=== PATIENT | male | born 1945 | race Caucasian/White ===

== ENCOUNTER → 2019-12-27 | Outpatient (CLI) | payer MEDICARE, OTHER ==
[~2019-12-27] MED LIST: ALEVE 220MG220 MG PO; ALTACE 10MG TAB10 MG PO; ASPIRIN 32325 MG/TAB PO; ASPIRIN E.C. 8181 MG PO; BYSTOLIC10 MG PO; CATAPRES 0.1MG0.1 MG PO; CEPHALEXIN500 M1 PO; ELIQUIS 5MG PO; PLAVIX 75MG TAB75 MG PO; PRADAXA 150MG150 MG PO; TIKOSYN0.5 MG PO; TOPROL XL 25MG25 MG PO; VYTORIN 10 MG-21 TAB PO; XARELTO10 MG PO; ZETIA 10MG TAB10 MG PO; ZOCOR 20MG20 MG PO
== END ==
LOC: COL.VAS 13:30
DX: G47.33 Obstructive sleep apnea (adult) (pediatric) (principal); I48.91 Unspecified atrial fibrillation; Z95.9 Presence of cardiac and vascular implant and graft, unspecified; I08.0 Rheumatic disorders of both mitral and aortic valves

== ENCOUNTER → 2020-01-21 | Outpatient (CLI) | payer MEDICARE, OTHER | LOC: ZCOL.LAB 17:12 | DX: R53.83 Other fatigue (principal); R05 Cough; R50.9 Fever, unspecified; Z20.828 Contact with and (suspected) exposure to other viral communicable diseases ==

== ENCOUNTER → 2021-02-15 | Outpatient (CLI) | payer MEDICARE, OTHER | LOC: COL.RAD 12:50 | DX: M25.551 Pain in right hip (principal) | CPT/HCPCS: J3301; Q9967 ==

== ENCOUNTER → 2022-03-17 | Outpatient (CLI) | payer MEDICARE, OTHER | LOC: COL.VAS 12:52 | DX: I08.0 Rheumatic disorders of both mitral and aortic valves (principal); I65.23 Occlusion and stenosis of bilateral carotid arteries ==

== ENCOUNTER 2023-10-12 10:00 | Inpatient (IN) | payer MEDICARE, OTHER ==
[~2023-10-12] VITALS: Ht 188 cm; Wt 97.2 kg
[~2023-10-12 10:00] MED LIST changes: +CVS SPECTRAVIT1 EA15 PO; +HCTZ 25MG TAB25 MG PO; +PAPAYA ENZYME1 TA1 PO; +PROTONIX 40MG T40 MG PO; +PROZAC 20MG20 MG PO; +THIAMINE 1100 MG/TAB PO; +TOPROL XL 50MG50 MG PO; +TYLENOL 325MG325 MG PO; +ZYRTEC 10MG10 MG PO
[2023-10-12] MEDS ORDERED: TYLENOL 500MG500 MG PO (13:54)
[2023-10-12] MEDS ORDERED: DULCOLAX S10 MG/SUPP RC (13:55)
[2023-10-12] MEDS ORDERED: LOVENOX 3030 MG/0.3 SQ (13:55)
[2023-10-12] MEDS ORDERED: CORDARONE200 MG/TAB PO (13:55)
[2023-10-12] MEDS ORDERED: FOLIC ACID 11 MG/TA1 PO (13:56)
[2023-10-12] MEDS ORDERED: PROZAC 20MG20 MG PO (13:56)
[2023-10-12] MEDS ORDERED: ZETIA 10MG TAB10 MG PO (13:56)
[2023-10-12] MEDS ORDERED: ATARAX 25MG25 MG/TAB PO (13:57)
[2023-10-12] MEDS ORDERED: TOPROL XL 50MG50 MG PO (13:57)
[2023-10-12] MEDS ORDERED: PROTONIX 40MG T40 MG PO (13:58)
[2023-10-12] MEDS ORDERED: ALTACE 5MG5 MG PO (13:59)
[2023-10-12] MEDS ORDERED: MIRALAX PA17 GM/Dose PO (13:59)
[2023-10-12] MEDS ORDERED: SENNA-LAX8.6 MG PO (14:00)
[2023-10-12 16:28] VITALS: BP 126/74; PULSE 59; TEMP 97.7
[2023-10-12] MEDS ORDERED: DULCOLAX TAB5 MG PO (16:34)
[2023-10-12] MEDS ORDERED: MULTI-VITAMIN W1 TA1 PO (16:36)
[2023-10-12] MEDS ORDERED: ROXICODONE 55 MG/TAB PO (16:38)
[2023-10-12] MEDS ORDERED: SENNA-S 50 MG-81 TAB PO (16:39)
[2023-10-12] MEDS ORDERED: NATURE'S BLEND100 M2 PO (16:40)
[2023-10-12] MEDS ORDERED: MOBIC15 MG PO (16:43)
--- NOTE | 2023-10-12 16:45 | NUR ---
Pt recently admitted to room from [facility]. Pt is alert and oriented, pain complaints in his neck, states the brace also bothers him at times. PT is weak and does need assistance with standing. Pt requires a walker and one assist with ambulation. Pt reprots that it has been several days since he has had a bowel movement and does not have much of an appetite due to this. Stool softeners reported as given. Pts and son at bedside. Dr Evans in with pt at this time
[2023-10-12] MEDS ORDERED: Naloxone 0.4 MG/ML VIAL IV PRN (17:00)
[2023-10-12] MEDS ORDERED: Docusate Sodium 100 MG CAP PO PRN (17:00)
[2023-10-12] MEDS ORDERED: Cetirizine 10 MG TAB PO PRN (17:15)
[2023-10-12] MEDS ORDERED: Acetaminophen 500 MG TAB PO PRN (17:15)
[2023-10-12] MEDS ORDERED: Meloxicam 7.5 MG TAB PO PRN (17:15)
[2023-10-12] MEDS ORDERED: oxyCODONE 5 MG TAB PO PRN (17:15)
[2023-10-12] MEDS ORDERED: Bisacodyl 5 MG TAB PO PRN (17:15)
[2023-10-12 17:41] VITALS: BP 126/74; PULSE 59; TEMP 97.7
--- NOTE | 2023-10-12 18:04 | NUR ---
Pt seems to be a little short tempered off and on. Pt was needing to have bowel movement and was somewhat snappy with staff and family. Pt was successful and is now apologetic. Pts and son did leave for the evening. I did go over orienting him to his room again, how to call for staff and using the call light. Educated him again on how meals and therapy works. Pt does appear to be forgetful. Bed alarm on
[2023-10-12 19:00] VITALS: BP_SYST 126
--- NOTE | 2023-10-12 19:00 | NUR ---
RECEIVED CHANGE OF SHIFT REPORT FROM DAY SHIFT NURSE. PATIENT RESTING IN BED, EXIT ALARM ON, CALL LIGHT IN REACH. DENIES ANY NEEDS OR CONCERNS AT TIME OF REPORT.
[2023-10-12] MEDS ORDERED: Sennosides/Docusate 8.6-50 MG TAB PO SCH (21:00)
[2023-10-12] MEDS ORDERED: Polyethylene Glycol 3350 17 GM PDS PO SCH (21:00)
[2023-10-12] MEDS ORDERED: Ezetimibe 10 MG TAB PO SCH (21:00)
[2023-10-12] MEDS ORDERED: hydrOXYzine HCl 25 MG TAB PO SCH (21:00)
--- NOTE | 2023-10-13 00:01 | NUR ---
PATIENT COMPLAINING OF NECK PAIN, SEE MAR FOR PAIN MEDS GIVEN. NO OTHER NEEDS REPORTED AT THIS TIME.
--- NOTE | 2023-10-13 03:30 | NUR ---
PATIENT RESTING IN BED WITH EYES CLOSED AND BREATHING UNLABORED AND EVEN. EXIT ALARM ON, CALL LIGHT IN REACH. PATIENT DID NOT WAKE DURING NURSE ROUNDING.
[2023-10-13 04:25] VITALS: BP 114/67; PULSE 60; TEMP 97.8
[2023-10-13 07:04] VITALS: BP_SYST 114
--- NOTE | 2023-10-13 07:06 | NUR ---
Change of shift report given to day shift nurseNila. Patient resting in bed with exit alarm on and call light in reach. No needs voiced at time of report.
[2023-10-13] MEDS ORDERED: Amiodarone 200 MG TAB PO SCH (09:00)
[2023-10-13] MEDS ORDERED: Folic Acid 1 MG TAB PO SCH (09:00)
[2023-10-13] MEDS ORDERED: FLUoxetine 20 MG CAP PO SCH (09:00)
[2023-10-13] MEDS ORDERED: Thiamine 100 MG TAB PO SCH (09:00)
--- NOTE | 2023-10-13 09:18 | NUR ---
PT LAYING IN BED, ALERT AND ORIENTEDX4. RATES PAIN 6/10 IN THE KNECK. GAVE PT PAIN PILL. PT WEARING ASPEN COLAR AND SAYS HE FEELS LIKE IT IS RUBBING ON HIS KNECK TOO MUCH. ASSESSED GAVE MORNING MEDS. CALL LIGHT WITHIN REACH.
--- NOTE | 2023-10-13 11:41 | NUR ---
wool batting worker met with pt and , Danica [phone] to complete intake. Pt reports he lives with his in [place]. He sees Dr. Salcedo for PCP needs and obtains medications from [facility] with no difficulties. Pt reports he is independent with ADLS, but needs some assistance with getting a sweater on. He reports to have a CPAP, FWW, and cane for DME. Pt states he drives himself to and from appointments. He states there are 3 stairs to enter the home and he has rails to assist. SW and pt both confirmed DPOA-HC as Danica with copy on file. Pt has no questions or needs at this time. SW stated she will follow along for needs, family meeting schedule, and updates from team conference on . Discharge Plan: re-eval
[2023-10-13 16:05] VITALS: BP 149/73; PULSE 59; TEMP 97.7
--- NOTE | 2023-10-13 17:44 | NUR ---
Incentive spirometer already in pt room. completing intervention.
[2023-10-13 19:01] VITALS: BP_SYST 149
--- NOTE | 2023-10-13 19:02 | NUR ---
Bedside report received from BRAYAN Dotson. Pt is currently resting in bed with no complaints. Call light within reach.
--- NOTE | 2023-10-14 05:31 | NUR ---
Shift assessment completed. VSS. Coy collar in place. Pt has no complaints of pain at this time. Pt urinated throughout the night in urinal with no complications. Pt has no request at this time. Call light within reach and fall precautions in place.
[2023-10-14 05:33] VITALS: BP 145/70; PULSE 64; TEMP 98.4
[2023-10-14 06:39] LABS: CALCIUM 8.7 mg/dL (8.4-10.2); CREATININE, serum 0.82 mg/dL (0.72-1.25); POTASSIUM 4.1 mEq/L (3.5-4.5)
[2023-10-14 07:13] VITALS: BP_SYST 145
--- NOTE | 2023-10-14 07:13 | NUR ---
Shift report received from night RN. No events reported overnight. Pt awake & lying supine in bed. Pt reporting neck discomfort. [place] collar is on. Pt repositioned in bed & reports feeling more comfortable. Other needs denied. Call light in reach. Bed alarm on.
--- NOTE | 2023-10-14 08:30 | NUR ---
Pt supervised as he stood from toilet to FWW to ambulate back to bed for breakfast. [place] collar on but removed for pos. neck incision check & then replaced. Optifoam dressing intact w/ shadowing noted. Bruising noted to pos. neck. Pt reporting neck & bilateral shoulder pain at 6/10. Oxycodone given per PRN order. Other needs denied. Call light in reach. Bed alarm on.
--- NOTE | 2023-10-14 09:47 | NUR ---
Pt off unit w/ PT.
--- NOTE | 2023-10-14 10:58 | NUR ---
Pt remains off unit for Group Therapy.
--- NOTE | 2023-10-14 12:06 | NUR ---
Pt back in room after Group Therapy. OT at the bedside for therapy in room.
--- NOTE | 2023-10-14 12:20 | NUR ---
Pt sitting up in recliner eating lunch independently. Son & grandson at the bedside. Pt reporting "pain is up there" but declines pain medication at this time. Other needs denied. Call light in reach. Chair alarm in place.
--- NOTE | 2023-10-14 14:01 | NUR ---
Pt supervised as he stood from recliner to transfer to bed. CGA provided during transfer. Pt assisted to supine position in bed w/ HOB slightly elevated. Pt requesting pain medication. Oxycodone given per PRN order. [place] collar on. at the bedside. Pt denies other needs. Call light in reach. Bed alarm on.
--- NOTE | 2023-10-14 15:36 | NUR ---
housekeeping worker met with pt to discuss need for family meeting on Monday at 10:15am or 10:30am. SW wrote this on the whiteboard as pt said he will discuss with his family. Discharge Plan: re-eval
--- NOTE | 2023-10-14 16:43 | NUR ---
Pt sleeping supine in bed w/ even & unlabored resps. Call light in reach. Bed alarm on.
[2023-10-14 17:27] VITALS: BP 145/76; PULSE 58; TEMP 97.6
[2023-10-14 18:56] VITALS: BP_SYST 145
--- NOTE | 2023-10-14 19:37 | NUR ---
Bedside report received from BRAYAN Blanc. Pt is currently resting with no complaints. Family at bedside. Call light within reach and fall precautions in place.
--- NOTE | 2023-10-15 01:48 | NUR ---
Pt pressed call light asking for this nurse to come into room due to pain in neck. This nurse went into pt room with KOKI Villagomez and assessed pain. Pt stated that PRN oxycodone did not help with the pain in his neck. This nurse offered PRN Tylenol and pt become upset. Pt stated that it was not his decision on whether to take the Tylenol. This nurse educated pt that the Tylenol order is a PRN medication and that it is his right on if he wants to take the medication. Pt stated that he did not want the medication at this time. This nurse repositioned pt with assistance of KOKI Villagomez. Pt has no other complaints at this time. Call light within reach and fall precautions in place.
[2023-10-15 05:50] VITALS: BP 164/66; PULSE 55; TEMP 97.4
--- NOTE | 2023-10-15 05:58 | NUR ---
This nurse heard groaning into pts room. This nurse
[2023-10-15 07:11] VITALS: BP_SYST 164
--- NOTE | 2023-10-15 07:12 | NUR ---
Shift report received from night PN. Pt awake & sitting up in bed. Pt reporting not sleeping well overnight d/t pain. Will discuss pain control w/ Hospitalist. Pt given oxycodone at 0534 by noc shift. Pt continues to report pain this morning.
--- NOTE | 2023-10-15 07:24 | NUR ---
ES Tylenol offered & refused.
--- NOTE | 2023-10-15 08:58 | NUR ---
Supervision provided as pt stood from bed to transfer to recliner. Oral hygiene completed by the pt independently after set up help provided. BLE elevated on footrest. Pt denies other needs at this time. Call light in reach. Chair alarm in place.
--- NOTE | 2023-10-15 10:01 | NUR ---
Pt sitting up in recliner watching [employer] service on his phone. [place] collar removed for incision check to pos neck. Optifoam dry & intact & shadowing. Bruising noted around neck incision. Oxycodone given at pt's request for neck pain. Other needs denied. Call light in reach. Chair alarm in place.
--- NOTE | 2023-10-15 10:59 | NUR ---
Chair alarm sounding. Pt transferred self from recliner to bed. Pt lying supine in bed upon room entry. HOB raised to approx 30 degrees at pt's request. Other needs denied. Call light in reach. Bed alarm on.
--- NOTE | 2023-10-15 11:34 | NUR ---
Pt assisted to sitting up on EOB & then supervised as he stood from bed to FWW to ambulate to the bathroom to attempt a BM. Pt reporting bilateral shoulder pain. Too soon for oxycodone. Pt agreeable to taking Tylenol. Tylenol given per PRN order. Other needs denied. Call light in reach.
--- NOTE | 2023-10-15 12:17 | NUR ---
Pt sitting up in recliner eating lunch indepenedently. [place] collar on. Pt denies any needs at this time. Call light in reach. Chair alarm in place.
--- NOTE | 2023-10-15 13:23 | NUR ---
Pt sitting up in recliner. Pt reporting skin irritation along jaw line. [place] collar removed, skin barrier applied, collar placed back on. Skin intact w/o redness or rash. Will continue to monitor.
--- NOTE | 2023-10-15 15:18 | NUR ---
Pt sleeping supine in bed w/ even & unlabored resps. Call light in reach. Bed alarm on.
[2023-10-15 17:00] VITALS: BP 131/67; PULSE 54; TEMP 97.5
--- NOTE | 2023-10-15 17:35 | NUR ---
Pt supervised as he stood from bed [facility]. Scheduled Tylenol given. Other needs denied. Call light in reach. Chair alarm in place. at the bedside.
[2023-10-15] MEDS ORDERED: Acetaminophen 500 MG TAB PO SCH (18:00)
--- NOTE | 2023-10-15 18:27 | NUR ---
Pt resting supine in bed after toileting. Pt had a medium, normal BM. Pt denies any needs at this time. Call light in reach. Bed alarm on. at the bedside.
--- NOTE | 2023-10-15 20:10 | NUR ---
Assessment complete. A&Ox3. Denies pain/nausea/shortness of breath. VS stable. Resting in bed watching tv with [place] Collar on. Instructed that patient is now on a scheduled tylenol. States if he is sleeping at 0000 he does not want to be woke up. Refusing mirilax and senocot stating he has had loose stools today. Plan of care discussed for this shift to include meds/pain control/calling for questions/concerns. Verbalizes understanding. Call light in reach. Will monitor.
[2023-10-15 20:40] VITALS: BP_SYST 131
--- NOTE | 2023-10-15 22:38 | NUR ---
Patient called with c/o pain to neck-rating pain 7/10 on pain scale. Oxycodone given per dr order. Patient has been incontinent of loose stool. Assisted with clean up and change. Denies any other needs. Call light in reach. Will monitor.
[2023-10-16 05:49] VITALS: BP 154/76; PULSE 51; TEMP 97.5
--- NOTE | 2023-10-16 05:53 | NUR ---
Patient had an uneventful night. Received oxycodone x1 and scheduled tylenol for pain. Has had several loose stools this shift. Did get slightly confused overnight not knowing where he was. Denies current needs. Call light in reach. Will monitor.
[2023-10-16 06:30] VITALS: BP_SYST 154
--- NOTE | 2023-10-16 08:53 | NUR ---
PT LAYING IN BED UPON ENTERING. ASSESSMENT DONE, MEDS GIVEN. MIRALAX AND SENOKOT HELD DUE TO DIARRHEA RPEORTED BY NIGHT RN, PT AGREES. PT DENIES PAIN AT THIS TIME. PT DRESSED AND AMBULATED WITH WALKER STANDBY TO CHAIR, PT TOLERATED WELL. ASPEN COLLAR IN PLACE. BREAKFAST SET UP AND PT DENIES NEEDS. CHAIR ALARM ON, CALL LIGHT IN REACH
--- NOTE | 2023-10-16 11:24 | NUR ---
RANDY, PHYSICAL THERAPY, CALLED THIS NURSE DUE TO PTS INCREASED PAIN DURING THERAPY. PRN 5MG OXYCODONE CLOSED UPON ARRIVAL AND GIVEN IN PHYSICAL THERPAY, RANDY WITNESSING ADMINISTRATION. PT DENIES FURTHER NEEDS.
--- NOTE | 2023-10-16 14:30 | NUR ---
Admission QIM scores were reviewed by the team. Code of 5 chosen for eating was determined by team discussion to be the most usual performance before interventions for this patient during the assessment period. Code of 4 chosen for sit to stand was determined by team discussion to be the most usual performance for this patient during the discharge assessment period. Code of 3 chosen for walking 10 feet was determined by team discussion to be the most usual performance for this patient during the discharge assessment period.--Marcelle Wyatt, PD
--- NOTE | 2023-10-16 15:31 | NUR ---
casino gaming worker met with pt to discuss any needs. Pt reports no concerns. SW verified the 10:30am Monday family meeting and pt was agreeable to this. Discharge Plan: re-eval
[2023-10-16 17:30] VITALS: BP 149/66; PULSE 54; TEMP 98
--- NOTE | 2023-10-16 18:46 | NUR ---
Received change of shift report from day shift nurse. Patient up in chair, no needs voiced at time of report.
[2023-10-16 19:00] VITALS: BP_SYST 149
--- NOTE | 2023-10-16 22:20 | NUR ---
PATIENT REPORTED HAD LOOSE STOOL EARLIER TODAY ND REFUSE STOOL SOFTENERS WITH HS MEDS, SEE MAR.
[2023-10-17 06:07] VITALS: BP 154/69; PULSE 59; TEMP 97.5
--- NOTE | 2023-10-17 07:08 | NUR ---
CHANGE OF SHIFT REPORT GIVEN TO DAY SHIFT NURSENARAYAN. PATIENT RESTING IN BED, EXIT ALARM ON, CALL LIGHT IN REACH.
[2023-10-17 07:09] VITALS: BP_SYST 154
--- NOTE | 2023-10-17 09:23 | NUR ---
PT LAYING IN BED, ALERT AND ORIENTEDX4. RATES PAIN 5/10 IN THE KNECK. TOLERATED BREAKFAST. ASSESSED AND GAVE MORNING MEDS. CALL LIGHT WITHIN REACH.
[2023-10-17 17:53] VITALS: BP 128/64; PULSE 55; TEMP 97.9
--- NOTE | 2023-10-17 18:37 | NUR ---
RECEIVED CHANGE OF SHIFT REPORT FROM DAY SHIFT NURSE.
[2023-10-17 19:00] VITALS: BP_SYST 128
--- NOTE | 2023-10-17 23:21 | NUR ---
PATIENT REQUESTED AND GIVEN PAIN MEDS FOR COMPLAINT OF NECK PAIN, SEE MAR FOR MEDS GIVEN. REPORTED HAD NORMAL BM "JUST A WHILE AGO". NO OTHER NEEDS REPORTED AT THIS TIME.
[2023-10-18 05:17] VITALS: BP 162/68; PULSE 64; TEMP 97.5
--- NOTE | 2023-10-18 07:07 | NUR ---
CHANGE OF SHIFT REPORT GIVEN TO DAY SHIFT NURSEPAM. PATIENT RESTING IN BED WITH EXIT ALARM ON, CALL LIGHT IN REACH. PATIENT DENIES ANY NEEDS FOR PAIN MEDS PRIOR TO CHANGE OF SHIFT.
[2023-10-18 07:15] VITALS: BP_SYST 162
--- NOTE | 2023-10-18 07:16 | NUR ---
Shift report received from night RN. No events reported overnight. Pt sleeping supine in bed w/ even & unlabored resps. Call light in reach. Bed alarm on.
[2023-10-18 07:20] LABS: BASO % 0.7 % (0.0-2.0); EOS # 0.2 K/mm3 (0.0-0.7); EOS % 2.7 % (0.0-4.0); GRAN # 3.6 K/mm3 (1.4-6.5); GRAN % 64.7 % (42.2-75.2); LYMPH # 1.3 K/mm3 (1.2-3.4); LYMPH % 22.5 % (20.0-51.0); MEAN CELL VOLUME 104 fl (80.0-100.0); MEAN CORPUSCULAR HGB CONC 33 g/dl (33.0-37.0); MEAN PLATELET VOLUME 9.1 fl (7.4-10.4); MONO # 0.5 K/mm3 (0.1-0.6); MONO % 8.9 % (1.7-9.3); PLATELET COUNT 388 K/mm3 (130-400); RED BLOOD COUNT 2.89 M/mm3 (4.20-5.60)
[2023-10-18 07:21] LABS: HEMATOCRIT 29.9 % (42.0-52.0); HEMOGLOBIN 9.9 g/dl (13.5-18.0); MEAN CORPUSCULAR HEMOGLOBIN 34 pg (27-31)
[2023-10-18 07:38] LABS: CALCIUM 8.7 mg/dL (8.4-10.2); CREATININE, serum 0.92 mg/dL (0.72-1.25); POTASSIUM 4.3 mEq/L (3.5-4.5)
--- NOTE | 2023-10-18 08:50 | NUR ---
Pt up to shower w/ OT in room.
--- NOTE | 2023-10-18 09:03 | NUR ---
Call placed to Dr. Prescott (NeuroSurg) office. Okay to remove neck incision santosh on 10/19 or 10/20. May remove Optifoam dressing today (10/17) & leave URBAN SOCIOLOGIST. May clean incision w/ soap & water. Dr. Evans aware.
--- NOTE | 2023-10-18 09:14 | NUR ---
Pt sitting up in recliner to continue OT after showering. Pt requesting pain medication. Oxycodone given per PRN order. Other needs denied. Call light in reach. Chair alarm in place.
--- NOTE | 2023-10-18 10:30 | NUR ---
Family meeting conducted w/ pt, , & daughter. Also present was the MD, PT, OT, & SW. MD talked about medical & therapists talked about how pt has progressed from a functional standpoint. Pt/Family stated they understood. Discussed a d/c date of either 10/23 or 10/24 w/ the recommendations for HH vs OP. The stated she would feel better w/ 10/25/23 & would like to HH. The pt & family asked questions which the team answered.
--- NOTE | 2023-10-18 13:05 | NUR ---
Pt ambulating off unit w/ PT.
--- NOTE | 2023-10-18 13:59 | NUR ---
Social Work attended clinical rounding. SW met with patient, , daughter and clinical team for family meeting. Patient scheduled for discharge on 10/25/23 with home health. Patient may require walker for discharge per PT recommendations and progress of patient at time of discharge. Patient informed SW that he has a walker at home with skids on legs. SW provided patient with Medicare.gov list of providers that provide PT, OT and ST services for patient/ review. They will discuss and let SW know their decision. SW notified therapy of patient having walker at home. Discharge Plan: home with HH
--- NOTE | 2023-10-18 15:37 | NUR ---
Pt sleeping supine in bed w/ aspen collar on. HOB slightly elevated. Resps even & unlabored. Call light in reach. Bed alarm on.
--- NOTE | 2023-10-18 16:50 | NUR ---
Optifoam dressing to pos. neck removed to reveal approx 19 santosh that are CDI. Incision is w/o redness, drainage. supervisor brine contacted to see if we have replacement for the aspen collar.
--- NOTE | 2023-10-18 17:01 | NUR ---
Padding to front of aspen collar replaced.
[2023-10-18 18:00] VITALS: BP 111/62; BP_SYST 11; PULSE 60; TEMP 98.1
[2023-10-18 19:00] VITALS: BP_SYST 111
--- NOTE | 2023-10-18 19:07 | NUR ---
RECEIVED CHANGE OF SHIFT REPORT FROM DAY SHIFT NURSE.
--- NOTE | 2023-10-19 00:36 | NUR ---
REFUSED SCHEDULED TYLENOL, DENIES DISCOMFORT AT THIS TIME.
--- NOTE | 2023-10-19 03:09 | NUR ---
RESTING IN BED WITH EYES CLOSED, BREATHING NONLABORED AND EVEN. EXIT ALARM ON, CALL LIGHT IN REACH.
[2023-10-19 05:14] VITALS: BP 149/71; PULSE 60; TEMP 97.4
--- NOTE | 2023-10-19 06:02 | NUR ---
PATIENT VOICES CONCERNS REGARDING "WEIRD DREAMS" HE IS EXPERIENCING, IF IT IS SOMETHING HE SHOULD BE CONCERNED. ENCOURAGED PATIENT TO SPEAK WITH DR REGARDING ANY CONCERNS HE HAS REGARDING HIS HEALTH. DENIES PAIN AT THIS TIME.
[2023-10-19 06:46] VITALS: BP_SYST 149
--- NOTE | 2023-10-19 07:21 | NUR ---
Shift report received from night RN. Pt sleeping supine in bed w/ even & unlabored resps. Call light in reach. Bed alarm on. Per report, pt c/o vivid dreaming overnight. Will discuss w/ Dr. Evans.
--- NOTE | 2023-10-19 07:24 | NUR ---
Change of shift report given to day shift nurseBrian.
--- NOTE | 2023-10-19 08:31 | NUR ---
Leigh Ann & Lorena held this morning. Pt incont of med, loose stool from bed to bathroom.
--- NOTE | 2023-10-19 08:41 | NUR ---
Pt up to ambulate off unit w/ OT.
[2023-10-19] MEDS ORDERED: Gabapentin 100 MG CAP PO SCH (09:21)
--- NOTE | 2023-10-19 12:06 | NUR ---
Pt sitting up in recliner eating lunch independently. Pt reporting mild neck & knee pain. Scheduled Tylenol & Gabapentin given. Side effects reviewed w/ pt & Lexicomp handout given. Pt had no further questions. Denies other needs. Call light in reach. Chair alarm in place.
--- NOTE | 2023-10-19 12:59 | NUR ---
Pt supervised as he stood from recliner & transferred to bed w/o AD. Pt denies other needs. Call light in reach. Bed alarm on.
--- NOTE | 2023-10-19 14:58 | NUR ---
Pt sleeping supine in bed w/ even & unlabored resps. Call light in reach. Bed alarm on.
--- NOTE | 2023-10-19 16:30 | NUR ---
Pt lying supine in bed. Denies pain/discomfort. Denies any needs. Call light in reach. Bed alarm on.
--- NOTE | 2023-10-19 17:01 | NUR ---
Pt sitting up in bed eating dinner independently. Pt denies any needs at this time. Call light in reach. Bed alarm on.
[2023-10-19 17:12] VITALS: BP 146/73; PULSE 54; TEMP 97.5
[2023-10-19 19:00] VITALS: BP_SYST 146
--- NOTE | 2023-10-19 20:00 | NUR ---
UPON SHIFT ASSESSMENT, GIDEON WAS AWAKE IN BED AND AXO X4. ASPEN COLLAR ON AND STERI STRIPS CDI. VS ARE WNL NEUROs GOOD. PATIENT DENIES ANY NEEDS OR PAIN AT THIS TIME. CALL LIGHT WITHIN REACH AND BED ALARM ON.
[2023-10-19] MEDS ORDERED: Sennosides/Docusate 8.6-50 MG TAB PO SCH (21:00)
[2023-10-19] MEDS ORDERED: Melatonin 3 MG TAB PO SCH (21:00)
--- NOTE | 2023-10-20 01:49 | NUR ---
ROUNDED ON PATIENT, GIDEON IS SLEEPING SUPINE WITH ASPEN COLLAR IN PLACE. NO VISABLE SIGNS OF DISTRESS.
[2023-10-20 05:56] VITALS: BP 167/77; PULSE 62; TEMP 97.5
--- NOTE | 2023-10-20 06:15 | NUR ---
ALERTED BY MARIELLE TELLES, PATIENT BP ELEVATED- 168 SYSTOLIC. WILL ADMINISTER SCHEDULED AMIODARONE DUE AT 0900 NOW AT 06:15.
[2023-10-20 07:27] VITALS: BP_SYST 167
[2023-10-20] MEDS ORDERED: Polyethylene Glycol 3350 17 GM PDS PO SCH (09:00)
--- NOTE | 2023-10-20 09:08 | NUR ---
PT RESTING IN BED WITH PAIN 6/10 IN NECK INCISION. PRN PAIN MEDICATION PROVIDED PER EMAR. NEPTALI TO NECK INCISION CLEAN AND DRY, NECK BRACE IN PLACE. 1 ASSIST WITH WALKER TO BATHROOM. PLANS FOR SWALLOW STUDY LATER TODAY. NO NEEDS AT THIS TIME. WILL CONTINUE TO MONITOR.
--- NOTE | 2023-10-20 15:39 | NUR ---
load out worker met with pt to discuss home health choice. Pt reports he was provided the list, but wants to discuss with his . SW asked for him to call if he decides today. Pt verbalized understanding and has no further needs. Discharge Plan: home 10/24 with HH
[2023-10-20 16:24] VITALS: BP 106/66; PULSE 55; TEMP 98
[2023-10-20 19:00] VITALS: BP_SYST 106
--- NOTE | 2023-10-21 02:14 | NUR ---
PT ALERT AND ORIENTE TO SELF AND PLACE. HAS BEEN FOIRGETFUL THI EVEING. HE THOUGHT HE DROPPED ALL HIS PILLS ON THE GROUND BUT HADNT, ALSO ASKED ME TO EMPTY HIS URINAL WHEN THERE WASNI AMDYTHING IN THERE. ASSESSED,MEDICATED PER EMAR. WEARING HIS NECK BRACE, REFUSING TO WEAR HIS CPAP AT HS. DENIES FURTHER NEED AT THIS TIME.
[2023-10-21 05:56] VITALS: BP 136/71; PULSE 65; TEMP 97.9
[2023-10-21 07:00] VITALS: BP_SYST 136
--- NOTE | 2023-10-21 09:28 | NUR ---
Patient awake, alert and oriented, forgetful. C/O occasional neck pain, PRNs given as ordered. Was able to have a BM this morning. Requires reeducation about fall precautions, at times attempting to ambulate without staff. Bed alarm on. [place] collar in place. Ambulates to therapy room with staff, steady with cane, x1 SBA.
[2023-10-21 17:33] VITALS: BP 99/59; PULSE 55; TEMP 97.7
[2023-10-21 18:30] VITALS: BP_SYST 99
--- NOTE | 2023-10-21 20:18 | NUR ---
SHIFT ASSESSMENT COMPLETE. PATIENT UP BRUSHING TEETH AND GETTING READY FOR BED. AT BEDSIDE. ALL NIGHT MEDS GIVEN PER ORDERS. NECK BRACE IN PLACE. PATIENT HAS NO COMPLAINTS OR REQUEST AT THIS TIME. FALL PRECAUTIONS IN PLACE AND CALL LIGHT IN REACH
[2023-10-22 05:14] VITALS: BP 117/58; PULSE 58; TEMP 98
--- NOTE | 2023-10-22 06:19 | NUR ---
PATIENT HAD A GOOD NIGHT SLEPT THROUGH MOST OF THE NIGHT, NO COMPLAINTS OR OR REQUEST. UNABLE TO SLEEP W/CPAP ON DUE TO NECK BRACE. FALL PRECAUTIONS IN PLACE AND CALL LIGHT IN REACH
--- NOTE | 2023-10-22 06:50 | NUR ---
awake resting in bed, bedside shift report received from BLANCA Cohen
[2023-10-22 07:10] VITALS: BP_SYST 117
--- NOTE | 2023-10-22 07:50 | NUR ---
sitting up in bed having breakfast, tolerates well
--- NOTE | 2023-10-22 09:00 | NUR ---
full assessment completed, see interventions for further info
--- NOTE | 2023-10-22 10:00 | NUR ---
resting in bed and denies needs
--- NOTE | 2023-10-22 12:29 | NUR ---
c/o headache, BP 138/70, medicated with scheduled tylenol, sitting up in bed for lunch
--- NOTE | 2023-10-22 12:44 | NUR ---
SW met with patient to follow up if he had time to review and visit with his on home health options. Patient informed SW that he did not and would be visiting with her today on this matter, to check back either later today or tomorrow on selection.
--- NOTE | 2023-10-22 14:41 | NUR ---
resting quietly, states headache is better since having tylenol
--- NOTE | 2023-10-22 15:00 | NUR ---
CLINIC MGR in and assisted him out of bed a nd ambulating out in [place]
--- NOTE | 2023-10-22 15:47 | NUR ---
in to bisit
--- NOTE | 2023-10-22 17:09 | NUR ---
sitting up in bed eating supper and visiting with
[2023-10-22 17:43] VITALS: BP 158/78; PULSE 64; TEMP 97.4
--- NOTE | 2023-10-22 18:50 | NUR ---
bedside shift report given to BRAYAN Lopez
--- NOTE | 2023-10-22 18:57 | NUR ---
RECEIVED CHANGE OF SHIFT REPORT FROM DAY SHIFT NURSE.
[2023-10-22 18:58] VITALS: BP_SYST 158
--- NOTE | 2023-10-22 19:00 | NUR ---
PATIENT RESTING IN BED AT TIME OF REPORT, EXIT ALARM ON, CALL LIGHT IN REACH. NO NEEDS VOICED AT THIS TIME.
[2023-10-22 23:31] VITALS: BP 125/69
[2023-10-23 05:34] VITALS: BP 129/70; PULSE 59; TEMP 97.9
[2023-10-23 07:00] VITALS: BP_SYST 129
--- NOTE | 2023-10-23 07:37 | NUR ---
CHANGE OF SHIFT REPORT GIVEN TO DAY SHIFT NURSEJUDITH. PATIENT GIVEN PAIN MEDS PER PATIENT REQUEST, SEE MAR. PATIENT RESTING IN BED WITH EXIT ALARM ON, CALL LIGHT IN REACH.
--- NOTE | 2023-10-23 08:00 | NUR ---
PATIENT IS A&O. VSS. DRY KILN BURNER GAVE PRN ROXICODONE FOR PAIN BEFORE AM THERAPY PER PATIENT REQUEST. ALL OTHER AM MEDS NOW GIVEN. TOLERATING GENERAL DIET WITH 2,000 FR. NO C/O N/V. NO IV SITE. POST NECK SITE WITH WET PROCESS HEAD MILLER AND WELL APPROXIMATED. ASPEN COLLAR INPLACE. 1 ASSIST WITH CANE. PT/OT CONSULTED. HEAD TO TOE ASSESSMENT COMPLETE. NO OTHER NEEDS AT THIS TIME. CALL LIGHT IN REACH. BED ALARM ON.
--- NOTE | 2023-10-23 15:38 | NUR ---
Laundry Pricing Clerk met with patient to follow up on choice for Home Health. Patient would like to use [facility]. SW faxed referral and will follow up once [facility] has reviewed.
[2023-10-23 18:12] VITALS: BP 147/79; PULSE 67; TEMP 97.6
[2023-10-23 19:00] VITALS: BP_SYST 147
--- NOTE | 2023-10-23 20:20 | NUR ---
PATIENT VERBALIZING THAT HE HAS BEEN WORKING OUT "WITH SOMEONE" AND WHEN TOLD THAT HIS THERAPY SESSIONS WERE DONE FOR THE DAY, INFORMED PATIENT OF TIME OF NIGHT PATIENT VERBALIZES NO AWARENESS OF CURRENT TIME. INFORMED PATIENT THAT NURSING REPORTED THAT HE HAD BEEN SLEEPING MOST OF DAY INBETWEEN ACTIVITIES, POSSIBLY DUE TO INCREASE INTAKE OF PAIN MEDICATIONS. PATIENT REPOSITIONED IN BED FOR COMFORT, PATIENT STATED NO FURTHER NEEDS NOR COMPLAINED OF DISCOMFORT AFTER REPOSITIONING AT THIS TIME.
--- NOTE | 2023-10-24 04:24 | NUR ---
PATIENT MORE APPROPRIATE WITH CONVERSATION, ORIENTED TO PLACE AND EVENT. NO NEEDS VOICED AT THIS TIME. REPORTED THAT URINAL NEEDED TO BE EMPTIED AND WAS NOT HAPPY THAT THE BED LINENS WERE SOILED DUE TO URINE LEAKAGE FROM TRYING TO USE URINAL. PATIENT TO BATHROOM, SKIN CLEANED USING CLEANSING CLOTHES, NO SKIN IRRITATION OBSERVED TO TORSO AND PERIAREA AND BLE/BUE. PATIENT PUT BACK TO BED, EXIT ALARM BACK ON WITH CALL LIGHT IN REACH.
[2023-10-24 06:00] VITALS: BP 124/67; PULSE 60; TEMP 97.7
--- NOTE | 2023-10-24 07:20 | NUR ---
Change of shift report given to day shift nurse, Jesus. Patient resting in bed with exit alarm on, call light in reach.
[2023-10-24 08:00] VITALS: BP_SYST 124
--- NOTE | 2023-10-24 09:33 | NUR ---
Shift report received from night RN. No events reported overnight.
--- NOTE | 2023-10-24 09:39 | NUR ---
Social work student met with patient to complete important message from medicare form. Patient understood document and signed. Social work student made a copy to place in patient's chart and gave original to patient. Social work student faxed updates to [facility].
[2023-10-24 10:06] LABS: BASO # 0.1 K/mm3 (0.0-0.2); BASO % 0.9 % (0.0-2.0); EOS # 0.2 K/mm3 (0.0-0.7); EOS % 3.5 % (0.0-4.0); GRAN # 4.7 K/mm3 (1.4-6.5); GRAN % 68.2 % (42.2-75.2); HEMOGLOBIN 10.1 g/dl (13.5-18.0); LYMPH # 1.1 K/mm3 (1.2-3.4); LYMPH % 16.6 % (20.0-51.0); MEAN CELL VOLUME 99 fl (80.0-100.0); MEAN CORPUSCULAR HEMOGLOBIN 34 pg (27-31); MEAN CORPUSCULAR HGB CONC 34 g/dl (33.0-37.0); MEAN PLATELET VOLUME 9.1 fl (7.4-10.4); MONO # 0.7 K/mm3 (0.1-0.6); MONO % 10.1 % (1.7-9.3); PLATELET COUNT 419 K/mm3 (130-400); RED BLOOD COUNT 2.99 M/mm3 (4.20-5.60); REDCELL DISTRIBUTION WIDTH-CV 13.5 % (11.5-14.5)
[2023-10-24 10:07] LABS: HEMATOCRIT 29.7 % (42.0-52.0)
[2023-10-24 10:27] LABS: CALCIUM 9.1 mg/dL (8.4-10.2); CREATININE, serum 1.14 mg/dL (0.72-1.25); POTASSIUM 4.2 mEq/L (3.5-4.5)
[2023-10-24] MEDS ORDERED: Triamcinolone 40 MG/ML 1 ML VIAL IJP ONE (12:15)
--- NOTE | 2023-10-24 12:26 | NUR ---
PT IN BED, HOB ELEVATED, EATING LUNCH INDEPENDENTLY WITHOUT DIFFUCLTY. PT GIVEN CONSENT FOR PROCEDURE, VERBALIZES UNDERSTANDING, DENIES FURTHER QUESTIONS, CONSENT SIGNED. PT INFORMED OF NO LONGER HAVING FLUID RESTRICTION, VERBALIZES UNDERSTANDING, DENIES OTHER NEEDS. CALL LIGHT IN REACH.
[2023-10-24] MEDS ORDERED: Ethyl Chloride Topical 200 (3 to 7 second) Sprays/103 ML BOTTLE TP ONE (15:24)
[2023-10-24 17:13] VITALS: BP 103/57; PULSE 59; TEMP 97.5
--- NOTE | 2023-10-24 19:20 | NUR ---
RECEIVED CHANGE OF SHIFT REPORT FROM DAY SHIFT NURSE. PATIENT RESTING IN BED, EXIT ALARM ON, CALL LIGHT IN REACH. NO NEEDS VOICED AT TIME OF REPORT.
[2023-10-24 19:27] VITALS: BP_SYST 103
--- NOTE | 2023-10-25 03:00 | NUR ---
PATIENT RESTING IN BED, EYES CLOSED, BREATHING NONLABORED AND EVEN. EXIT ALARM ON, CALL LIGHT IN REACH, DID NOT WAKE DURING NURSE ROUNDING.
[2023-10-25 05:48] VITALS: BP 133/57; PULSE 65; TEMP 97.4
--- NOTE | 2023-10-25 07:10 | NUR ---
CHANGE OF SHIFT REPORT GIVEN TO DAY SHIFT NURSEPAM.
[2023-10-25 07:15] VITALS: BP_SYST 133
--- NOTE | 2023-10-25 07:16 | NUR ---
Shift report received from night RN. No events reported overnight. Pt awake & sitting up in bed. Denies any needs. Call light in reach. Bed alarm on.
[2023-10-25] MEDS ORDERED: Cyanocobalamin (Vit B-12) 1,000 MCG TAB PO SCH (09:00)
[2023-10-25] MEDS ORDERED: NEURONTIN100 MG/CAP PO (09:10)
[2023-10-25] MEDS ORDERED: FOLIC ACID 11 MG/TA1 PO (09:11)
[2023-10-25] MEDS ORDERED: B-121000 MCG PO (09:12)
[2023-10-25] MEDS ORDERED: NATURE'S BLEND100 M2 PO (09:12)
[2023-10-25] MEDS ORDERED: ROXICODONE 55 MG/TAB PO (09:12)
--- NOTE | 2023-10-25 12:31 | NUR ---
1200 - & son arrived to unit for DC. DC summary reviewed w/ the pt, , son. Questions re: home medications answered. They had no further questions. Pt escorted off unit via wheelchair to vehicle.
--- NOTE | 2023-10-25 14:38 | NUR ---
[facility] contacted [facility] and faxed discharge orders.
--- NOTE | 2023-10-26 13:00 | NUR ---
Discharge QIM scores were reviewed by the team. Code of 6 chosen for eating was determined by team discussion to be the most usual performance for this patient during the discharge assessment period. Code of 5 chosen for oral hygiene was determined by team discussion to be the most usual performance for this patient during the discharge assessment period. Code of 6 chosen for toileting hygiene was determined by team discussion to be the most usual performance for this patient during the discharge assessment period. Code of 6 chosen for toilet transfers was determined by team discussion to be the most usual performance for this patient during the discharge assessment period. Code of 6 chosen for sit to lying was determined by team discussion to be the most usual performance for this patient during the discharge assessment period. Code of 6 chosen for lying to sitting was determined by team discussion to be the most usual performance for this patient during the discharge assessment period. Code of 6 chosen for sit to stand was determined by team discussion to be the most usual performance for this patient during the discharge assessment period. Code of 6 chosen for chair to bed was determined by team discussion to be the most usual performance for this patient during the discharge assessment period. Code of 6 chosen for walking 10 feet was determined by team discussion to be the most usual performance for this patient during the discharge assessment period. Code of 6 chosen for walking 50 feet w/ 2 turns was determined by team discussion to be the most usual performance before interventions for this patient during the discharge assessment period. Code of 6 chosen for walking 150 feet was determined by team discussion to be the most usual performance for this patient during the discharge assessment period. Code of 6 chosen for 1 step was determined by team discussion to be the most usual performance for this patient during the discharge assessment period.--PD Bryce
== END 2023-10-25 12:00 | disposition home health service (06) | DRG 560 ==
PROVIDERS: Physician Assistant; ADMIT Physical Medicine & Rehabilitation Sports Medicine
DX: S12.120D Other displaced dens fracture, subsequent encounter for fracture with routine healing (principal); E87.1 Hypo-osmolality and hyponatremia; R26.89 Other abnormalities of gait and mobility; S12.090D Other displaced fracture of first cervical vertebra, subsequent encounter for fracture with routine healing; I10 Essential (primary) hypertension; F41.9 Anxiety disorder, unspecified; F32.A Depression, unspecified; E78.5 Hyperlipidemia, unspecified; R13.13 Dysphagia, pharyngeal phase; K59.00 Constipation, unspecified; M62.50 Muscle wasting and atrophy, not elsewhere classified, unspecified site; R63.4 Abnormal weight loss; E83.42 Hypomagnesemia; I48.91 Unspecified atrial fibrillation; G47.33 Obstructive sleep apnea (adult) (pediatric); K21.9 Gastro-esophageal reflux disease without esophagitis; M17.0 Bilateral primary osteoarthritis of knee; M19.012 Primary osteoarthritis, left shoulder; Z74.09 Other reduced mobility; Z79.899 Other long term (current) drug therapy; Z79.01 Long term (current) use of anticoagulants; Z87.891 Personal history of nicotine dependence; Z79.891 Long term (current) use of opiate analgesic; W19.XXXD Unspecified fall, subsequent encounter; Z68.28 Body mass index [BMI] 28.0-28.9, adult; F10.10 Alcohol abuse, uncomplicated
CPT/HCPCS: J1650; J3301

== ENCOUNTER → 2023-12-05 | Outpatient (CLI) | payer MEDICARE, OTHER ==
[~2023-12-05] MED LIST changes: +ALTACE 5MG5 MG PO; +ATARAX 25MG25 MG/TAB PO; +B-121000 MCG PO; +CORDARONE200 MG/TAB PO; +DULCOLAX S10 MG/SUPP RC; +DULCOLAX TAB5 MG PO; +FOLIC ACID 11 MG/TA1 PO; +LOVENOX 3030 MG/0.3 SQ; +MIRALAX PA17 GM/Dose PO; +MOBIC15 MG PO; +MULTI-VITAMIN W1 TA1 PO; +NATURE'S BLEND100 M2 PO; +NEURONTIN100 MG/CAP PO; +ROXICODONE 55 MG/TAB PO; +SENNA-LAX8.6 MG PO; +SENNA-S 50 MG-81 TAB PO; +TYLENOL 500MG500 MG PO
== END ==
LOC: MHCPAIN 10:30
DX: S12.9XXD Fracture of neck, unspecified, subsequent encounter (principal); M62.50 Muscle wasting and atrophy, not elsewhere classified, unspecified site; M62.81 Muscle weakness (generalized); M79.2 Neuralgia and neuritis, unspecified
CPT/HCPCS: G0463

== ENCOUNTER 2024-01-12 10:30 | Outpatient (RCR) | payer MEDICARE, OTHER | END 2024-01-14 | disposition home or self-care (01) | LOC: WSPT | DX: S12.100D Unspecified displaced fracture of second cervical vertebra, subsequent encounter for fracture with routine healing (principal); X58.XXXD Exposure to other specified factors, subsequent encounter ==

== ENCOUNTER → 2024-03-21 | Outpatient (CLI) | payer MEDICARE, OTHER | LOC: MHCPAIN 11:07 | DX: S12.9XXD Fracture of neck, unspecified, subsequent encounter (principal); M62.50 Muscle wasting and atrophy, not elsewhere classified, unspecified site; M62.81 Muscle weakness (generalized); M79.2 Neuralgia and neuritis, unspecified | CPT/HCPCS: G0463 ==

== ENCOUNTER → 2024-04-11 | Outpatient (CLI) | payer MEDICARE ==
[~2024-04-11] MED LIST changes: +Gadoterate 20 ML VIAL IV ONE
== END ==
LOC: COL.RAD 08:26
DX: M43.22 Fusion of spine, cervical region (principal); S12.9XXD Fracture of neck, unspecified, subsequent encounter; M47.812 Spondylosis without myelopathy or radiculopathy, cervical region; X58.XXXD Exposure to other specified factors, subsequent encounter
CPT/HCPCS: A9575

== ENCOUNTER → 2024-05-02 | Outpatient (CLI) | payer MEDICARE ==
[~2024-05-02] MED LIST changes: -Gadoterate 20 ML VIAL IV ONE
== END ==
LOC: COL.RAD 09:15
DX: I67.82 Cerebral ischemia (principal); R29.6 Repeated falls; R29.818 Other symptoms and signs involving the nervous system; G62.9 Polyneuropathy, unspecified; R25.1 Tremor, unspecified